=== PATIENT | male | born 1970 | race Caucasian/White ===

== ENCOUNTER 2023-04-09 22:33 | Inpatient (IN) | payer OTHER, SELFPAY ==
[2023-04-09 22:41] VITALS: BP 114/77; PULSE 97; RESP 18; TEMP 36.9; O2SAT 99; BMI 30.3
--- NOTE | 2023-04-09 22:56 | DI.RAD.S_ITS ---
PROCEDURE: XR ABDOMEN 1V INDICATIONS: lower abd pain TECHNIQUE: One view of the abdomen acquired. COMPARISON: None. FINDINGS: Surgical changes and devices: None. Bowel: No pneumoperitoneum. Nonspecific bowel gas pattern with a few nondilated air-filled loops of small bowel in the central abdomen. Soft tissues: No suspicious abdominal calcifications. Visualized solid organ contours appear normal in size. Bones: No suspicious bony lesions. IMPRESSION: No pneumoperitoneum. Nonspecific bowel gas pattern. Consider CT of the abdomen and pelvis for further evaluation if symptoms persist. Approved by: Yony Salvador M.D. on 04/09/2023 at 23:52
[2023-04-09 23:10] LABS: Add Manual Diff / Slide Review NO; Basophils Absolute Auto 0 /uL (0-100); Basophils Percent Auto 0.2 % (0-2); Eosinophils Absolute Auto 100 /uL (0-450); Eosinophils Percent Auto 0.4 % (2-4); Hematocrit 43.6 % (41-53); Hemoglobin 15.1 g/dL (13.5-17.5); Lymphocytes Absolute Auto 1700 /uL (1100-4500); Lymphocytes Percent Auto 10.7 % (25-40); Mean Corpuscular HGB Conc 34.7 % (30-36); Mean Corpuscular Hemoglobin 32.7 PG (26-34); Mean Corpuscular Volume 94.2 fL (80-100); Monocytes Absolute Auto 600 /uL (0-900); Monocytes Percent Auto 4.1 % (3-14); Neutrophils Absolute Auto 13000 /uL (1500-7000); Neutrophils Percent Auto 84.6 % (50-75); Platelet Count 235 X10^3/uL (150-400); Red Blood Cell Count 4.63 X10^6/uL (4.5-5.9); Red Cell Distribution Width 12.8 % (11.6-14.8); White Blood Cell Count 15.4 X10^3/uL (4.5-11.0)
[2023-04-09 23:17] LABS: Alanine Aminotransferase 28 IU/L (<50); Albumin 4.4 g/dL (3.5-5.0); Albumin Globulin Ratio 1.5 (1.0-2.8); Alkaline Phosphatase 42 U/L (38-126); Aspartate Aminotransferase 21 IU/L (17-59); BUN Creatinine Ratio 15.2 (6-22); Bilirubin Total 1.1 mg/dL (0.2-1.3); Blood Urea Nitrogen 15 mg/dL (9-20); Calcium 8.8 mg/dL (8.4-10.2); Carbon Dioxide 27 mmol/L (22-32); Chloride 98 mmol/L (98-107); Estimated Glomerular Filt Rate > 60 mL/min (>60); Glucose 143 mg/dL (70-100); HEMOLYSIS < 15 (0-50); Potassium 3.6 mmol/L (3.4-5.1); Sodium 134 mmol/L (137-145); Total Protein 7.4 g/dL (6.3-8.2)
[2023-04-09 23:24] LABS: Lipase 43 U/L (23-300)
--- NOTE | 2023-04-09 23:50 | DI.CT.S_ITS ---
PROCEDURE: CT ABDOMEN PELVIS W CON INDICATIONS: bilateral lower abd pain TECHNIQUE: After the administration of intravenous contrast, axial sections acquired from the lung bases to the pubic symphysis. Coronal and sagittal reformats were performed. For radiation dose reduction, the following was used: automated exposure control, adjustment of mA and/or kV according to patient size. COMPARISON: None. FINDINGS: Image quality: Excellent. Lung bases: Mild atelectasis in the lung bases. Heart: No significant findings. ABDOMEN: Liver: Unremarkable. Gallbladder: Unremarkable. Biliary ducts: Unremarkable. Pancreas: Unremarkable. Spleen: Unremarkable. Adrenal Glands: Unremarkable. Kidneys and Ureters: Duplex appearance of the left kidney is incidentally noted. No hydronephrosis. Bowel and peritoneum: Multiple diverticula are seen in the colon. Bowel wall thickening and inflammatory fat stranding are seen adjacent to a diverticulum at the sigmoid colon. An adjacent small collection of fluid and gas is seen measuring approximately 2.1 x 1.4 cm (66/2). Small tracks are seen extending to the adjacent small bowel loops with adjacent reactive bowel wall thickening. No signs of bowel obstruction. Liquid stool is noted in the ascending and transverse colon. Normal appendix. Mild nonspecific edema is noted at the root of the small bowel mesentery. Ventral Wall: Fat containing periumbilical hernia. Abdominal Nodes: No retroperitoneal or mesenteric adenopathy by size criteria. Vessels: Aorta and inferior vena cava are normal in size. PELVIS: Pelvic Organs: Unremarkable. Bladder: Unremarkable. Pelvic Nodes: No enlarged lymph nodes. Miscellaneous: No hernias are seen. Bones: Unremarkable. IMPRESSION: Acute ruptured sigmoid diverticulitis. Small foci of fluid and gas are seen in the pericolonic fat with reactive bowel wall thickening in the adjacent small bowel. No well-formed drainable abscess is seen at this time. A developing enterocolonic fistula tract is not excluded. Findings were discussed with the referring physician, Dr. Avila, by telephone on 04/10/2023 at 1:06 AM. Approved by: Yony Salvador M.D. on 04/10/2023 at 1:07
--- NOTE | 2023-04-09 23:51 | ED.GENADULT ---
HPI - General Adult General Chief complaint: Abdominal Pain Stated complaint: ABD pain Time Seen by Provider: 04/09/23 22:55 Source: patient and family Mode of arrival: Ambulatory History of Present Illness HPI narrative: 52-year-old male. Is otherwise healthy. Has never had a colonoscopy who is here for evaluation of lower abdominal discomfort. States he has having some nausea but no vomiting. Did have some diarrhea earlier today. No urinary symptoms. No fevers. No prior abdominal surgeries. To take some Advil prior to arrival without any improvement. Related Data Allergies Allergy/AdvReac Type Severity Reaction Status Date / Time No Known Drug Allergies Allergy Verified 04/10/23 01:37 Review of Systems Constitutional Constitutional: Reports system reviewed and no additional complaints, except as documented Gastrointestinal Gastrointestinal: Reports system reviewed and no additional complaints, except as documented Genitourinary Genitourinary: Reports system reviewed and no additional complaints, except as documented Integumentary/Breasts Skin/Breast: Reports system reviewed and no additional complaints, except as documented Hematologic/Lymphatic On Anticoagulants: No Patient History Social History Smoking Status: Never smoker Smoking Status: Never smoker alcohol intake frequency: a few times a week Substance Use Type: does not use Exam Initial Vital Signs Initial Vital Signs: Vital Signs Temperature 98.4 F 04/09/23 22:41 Pulse Rate 97 H 04/09/23 22:41 Respiratory Rate 18 04/09/23 22:41 Blood Pressure 114/77 04/09/23 22:41 Pulse Oximetry 99 04/09/23 22:41 Oxygen Delivery Method Room Air 04/09/23 22:41 Const General: cooperative, comfortable and No ill appearing [facility] Head: normal to inspection and normocephalic Resp Effort & Inspection: normal respiratory effort Auscultation: clear to auscultation bilaterally Cardio Rate: regular rate Rhythm: regular rhythm GI Inspection: normal to inspection and non-distended Palpation: soft, No firm and tender (Lower abdomen) Skin General: no rashes or lesions noted Neuro General: patient alert, patient awake and moves all extremities Extrem General: normal to inspection and capillary refill normal Course Orders Ordered: ED Orders 04/09/23 22:56 XR abdomen 1V Stat 04/09/23 22:57 Complete Blood Count AUTO DIFF Stat Comprehensive Metabolic Panel Stat Lipase Stat 04/09/23 23:50 CT abdomen pelvis w con Stat 04/10/23 01:17 Blood Culture Stat Lactate (Lactic Acid) Stat 04/10/23 01:19 Urinalysis and Microscopic Stat Urine Culture Stat 04/10/23 01:21 Consult to General Surgery Urgent Sodium Chloride (Normal Saline 0.9%) 1,000 mls @ 125 mls/hr IV CONT IFRAH Last Admin: 04/10/23 01:27 Dose: 125 mls/hr Documented By: RODERICK Morphine Sulfate (Morphine 2 Mg/Ml Inj) 2 mg IV Q4HR PRN PRN Reason: Pain, Moderate (4-6) Ondansetron HCl (Ondansetron 4 Mg/2 Ml Inj) 4 mg IV Q4HR PRN PRN Reason: Nausea And Vomiting Discontinued Medications Piperacillin Sod/Tazobactam (Sod 4.5 gm/ Sodium Chloride) 100 mls @ 200 mls/hr IV NOW ONE Stop: 04/10/23 01:18 Last Admin: 04/10/23 01:27 Dose: 200 mls/hr Documented By: RODERICK Vital Signs Vital signs: Vital Signs - 8 hr 04/09/23 22:41 Temperature 98.4 F Pulse Rate 97 H Respiratory Rate 18 Blood Pressure 114/77 Pulse Oximetry 99 Oxygen Delivery Method Room Air Medical Decision Making Lab Data Lab results reviewed: Yes I reviewed the patient's lab results. 04/09/23 22:57 04/09/23 22:57 Labs: Lab Results 04/09/23 04/09/23 04/09/23 Range/Units 22:57 22:57 22:57 WBC 15.4 H (4.5-11.0) X10^3/uL RBC 4.63 (4.5-5.9) X10^6/uL Hgb 15.1 (13.5-17.5) g/dL Hct 43.6 (41-53) % MCV 94.2 (80-100) fL MCH 32.7 (26-34) PG MCHC 34.7 (30-36) % RDW 12.8 (11.6-14.8) % Plt Count 235 (150-400) X10^3/uL Neut % (Auto) 84.6 H (50-75) % Lymph % (Auto) 10.7 L (25-40) % [place] % (Auto) 4.1 (3-14) % Eos % (Auto) 0.4 L (2-4) % Baso % (Auto) 0.2 (0-2) % Neut # (Auto) 61516 H (5972-9403) /uL Lymph # (Auto) 1700 (1971-2987) /uL [place] # (Auto) 600 (0-900) /uL Eos # (Auto) 100 (0-450) /uL Baso # (Auto) 0 (0-100) /uL Sodium 134 L (137-145) mmol/L Potassium 3.6 (3.4-5.1) mmol/L Chloride 98 (98-107) mmol/L Carbon Dioxide 27 (22-32) mmol/L BUN 15 (9-20) mg/dL Creatinine 0.99 (0.66-1.25) mg/dL Estimated GFR > 60 (>60) mL/min BUN/Creatinine Ratio 15.2 (6-22) Glucose 143 H (70-100) mg/dL Lactate (0.7-2.1) mmol/L Calcium 8.8 (8.4-10.2) mg/dL Total Bilirubin 1.1 (0.2-1.3) mg/dL AST 21 (17-59) IU/L ALT 28 (<50) IU/L Alkaline Phosphatase 42 (38-126) U/L Total Protein 7.4 (6.3-8.2) g/dL Albumin 4.4 (3.5-5.0) g/dL Globulin 3.0 (1.7-4.1) g/dL Albumin/Globulin Ratio 1.5 (1.0-2.8) Lipase 43 (23-300) U/L 04/09/23 Range/Units 22:57 WBC (4.5-11.0) X10^3/uL RBC (4.5-5.9) X10^6/uL Hgb (13.5-17.5) g/dL Hct (41-53) % MCV (80-100) fL MCH (26-34) PG MCHC (30-36) % RDW (11.6-14.8) % Plt Count (150-400) X10^3/uL Neut % (Auto) (50-75) % Lymph % (Auto) (25-40) % [place] % (Auto) (3-14) % Eos % (Auto) (2-4) % Baso % (Auto) (0-2) % Neut # (Auto) (0831-1007) /uL Lymph # (Auto) (5870-6449) /uL [place] # (Auto) (0-900) /uL Eos # (Auto) (0-450) /uL Baso # (Auto) (0-100) /uL Sodium (137-145) mmol/L Potassium (3.4-5.1) mmol/L Chloride (98-107) mmol/L Carbon Dioxide (22-32) mmol/L BUN (9-20) mg/dL Creatinine (0.66-1.25) mg/dL Estimated GFR (>60) mL/min BUN/Creatinine Ratio (6-22) Glucose (70-100) mg/dL Lactate 1.1 (0.7-2.1) mmol/L Calcium (8.4-10.2) mg/dL Total Bilirubin (0.2-1.3) mg/dL AST (17-59) IU/L ALT (<50) IU/L Alkaline Phosphatase (38-126) U/L Total Protein (6.3-8.2) g/dL Albumin (3.5-5.0) g/dL Globulin (1.7-4.1) g/dL Albumin/Globulin Ratio (1.0-2.8) Lipase (23-300) U/L Imaging Data Abdominal x-ray: Radiologist's Impression: PROCEDURE:? XR ABDOMEN 1V ? INDICATIONS:? lower abd pain ? TECHNIQUE:? One view of the abdomen acquired.? ? COMPARISON:? None. ? FINDINGS:? ? Surgical changes and devices:? None.? ? Bowel:? No pneumoperitoneum.? Nonspecific bowel gas pattern with a few nondilated air-filled loops of small bowel in the central abdomen. ? Soft tissues:? No suspicious abdominal calcifications.? Visualized solid organ contours appear normal in size.? ? Bones:? No suspicious bony lesions.? ? IMPRESSION:? No pneumoperitoneum.? Nonspecific bowel gas pattern.? Consider CT of the abdomen and pelvis for further evaluation if symptoms persist CT scan - abdomen/pelvis: Radiologist's Impression: PROCEDURE:? CT ABDOMEN PELVIS W CON ? INDICATIONS:? bilateral lower abd pain ? TECHNIQUE:? After the administration of intravenous contrast, axial sections acquired from the lung bases to the pubic symphysis.? Coronal and sagittal reformats were performed.? For radiation dose reduction, the following was used:? automated exposure control, adjustment of mA and/or kV according to patient size.? ? COMPARISON:? None. ? FINDINGS:? Image quality:? Excellent.? ? Lung bases:? Mild atelectasis in the lung bases. Heart:? No significant findings. ? ABDOMEN: Liver:? Unremarkable.? ? Gallbladder:? Unremarkable. Biliary ducts:? Unremarkable.? ? Pancreas:? Unremarkable.? ? Spleen:? Unremarkable.? ? Adrenal Glands:? Unremarkable.? ? Kidneys and Ureters:? Duplex appearance of the left kidney is incidentally noted.? No hydronephrosis. ? Bowel and peritoneum:? Multiple diverticula are seen in the colon.? Bowel wall thickening and inflammatory fat stranding are seen adjacent to a diverticulum at the sigmoid colon. An adjacent small collection of fluid and gas is seen measuring approximately 2.1 x 1.4 cm (66/2).? Small tracks are seen extending to the adjacent small bowel loops with adjacent reactive bowel wall thickening.? No signs of bowel obstruction.? Liquid stool is noted in the ascending and transverse colon.? Normal appendix.? Mild nonspecific edema is noted at the root of the small bowel mesentery. ? Ventral Wall: ? Fat containing periumbilical hernia.? Abdominal Nodes:? No retroperitoneal or mesenteric adenopathy by size criteria.? Vessels:? Aorta and inferior vena cava are normal in size.? ? PELVIS: Pelvic Organs:? Unremarkable.? ? Bladder:? Unremarkable.? ? Pelvic Nodes: No enlarged lymph nodes.? Miscellaneous: No hernias are seen. ? ? ? Bones:? Unremarkable.? IMPRESSION:? Acute ruptured sigmoid diverticulitis.? Small foci of fluid and gas are seen in the pericolonic fat with reactive bowel wall thickening in the adjacent small bowel.? No well-formed drainable abscess is seen at this time.? A developing enterocolonic fistula tract is not excluded.? ? MDM Narrative Medical decision making narrative: Patient does have a leukocytosis. Has minimal lower abdominal tenderness. CT scan shows diverticulitis with perforation. Patient is not vomiting. Deny the need for nausea or pain medication here in the ER. Afebrile. I did discuss the case with Dr. han on-call for General surgery who will admit for further evaluation and treatment. Discussed the need admission with the patient. He expressed understanding agreement as well. Discharge Plan Departure Patient Disposition: Home Clinical Impression: Diverticulitis of colon with perforation
[2023-04-10] MEDS: PIPERACILLIN/TAZO 4.5 GM in SODIUM CHLORIDE 0.9% 100 ML IV (01:27)
[2023-04-10] MEDS: SODIUM CHLORIDE 0.9% 1,000 ML 125 ML IV (01:27)
[2023-04-10 01:28] LABS: Lactate (Lactic Acid) 1.1 mmol/L (0.7-2.1)
[2023-04-10 02:00] VITALS: BP 120/77; PULSE 86; RESP 18; TEMP 36.9; O2SAT 95
[2023-04-10 02:18] VITALS: BMI 30.3
[2023-04-10 02:34] LABS: Appearance Urine UA CLEAR; Bilirubin Urine UA NEGATIVE (NEGATIVE); Color Urine UA YELLOW; Glucose Urine UA NEGATIVE (Negative); Ketones Urine UA 1+ (NEGATIVE); Leukocyte Esterase Urine UA NEGATIVE (NEGATIVE); Nitrite Urine UA NEGATIVE (Negative); Occult Blood Urine UA NEGATIVE (Negative); Protein Urine UA TRACE (Negative); Specific Gravity Urine UA 1.015 (1.000-1.035); pH Urine UA 5.5 (4.5-8.0)
[2023-04-10 02:42] LABS: Bacteria Urine None Seen; RBC Urine None Seen (0-5/HPF); WBC Urine None Seen (0-5/HPF)
[2023-04-10 02:43] LABS: Mucus Urine 1+ (Negative)
[2023-04-10 11:00] VITALS: BP 125/76; PULSE 88; RESP 17; TEMP 36.7; O2SAT 97
[2023-04-10 11:40] VITALS: PULSE 72
--- NOTE | 2023-04-10 12:07 | PM.HP.1 ---
History of Present Illness History of Present Illness Date Patient Seen: 04/10/23 Time Patient Seen: 12:07 Chief complaint: ABD pain Narrative: Mr. 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 He has never had pain like this before and it started a few days ago but was getting much much worse until his stated that he needed to go to the emergency room to have it checked out. He has not had a colonoscopy in the past. He denies fever chills nausea vomiting diarrhea or constipation. He thinks that overall his pain is a little bit better than it was last night. It is still pretty significant. He has been ambulating in the room and urinating normally. He subjectively reports a normal amount of urine and color. He takes no medication and has not had any surgeries. [facility] Social History household members: spouse Smoking Status: Never smoker alcohol intake: current Meds Home Medications and Allergies Home Medications Medication Instructions Recorded Confirmed Type No Known Home Medications 04/10/23 04/10/23 History Allergies Allergy/AdvReac Type Severity Reaction Status Date / Time No Known Drug Allergies Allergy Verified 04/10/23 01:37 Exam Vital Signs (past 8 hours): - 04/10/23 08:26 Temperature 98.1 F Pulse Rate 88 Respiratory Rate 17 Blood Pressure 125/76 Pulse Oximetry 97 Oxygen Delivery Method Room Air Const General: cooperative, healthy appearing and comfortable Nutritional Appearance: well nourished Orientation: alert, awake and oriented x3 Other: supine in bed. HENMT Head: normal to inspection Mouth: moist mucous membranes Eyes General: appearance normal, both eyes and all related structures Resp Effort & Inspection: normal respiratory effort and able to speak in complete sentences Cardio Pulses: radial pulses present GI Palpation: soft and tender (markedly tender mainly suprapubic/midline below umbilicus. local peritoneal) Extrem General: normal to inspection Objective Labs 04/09/23 22:57 04/09/23 22:57 Labs: Laboratory Results - last 24 hr 04/09/23 04/09/23 04/09/23 22:57 22:57 22:57 WBC 15.4 H RBC 4.63 Hgb 15.1 Hct 43.6 MCV 94.2 MCH 32.7 MCHC 34.7 RDW 12.8 Plt Count 235 Neut % (Auto) 84.6 H Lymph % (Auto) 10.7 L Page % (Auto) 4.1 Eos % (Auto) 0.4 L Baso % (Auto) 0.2 Neut # (Auto) 50013 H Lymph # (Auto) 1700 Page # (Auto) 600 Eos # (Auto) 100 Baso # (Auto) 0 Sodium 134 L Potassium 3.6 Chloride 98 Carbon Dioxide 27 BUN 15 Creatinine 0.99 Estimated GFR > 60 BUN/Creatinine Ratio 15.2 Glucose 143 H Lactate Calcium 8.8 Total Bilirubin 1.1 AST 21 ALT 28 Alkaline Phosphatase 42 Total Protein 7.4 Albumin 4.4 Globulin 3.0 Albumin/Globulin Ratio 1.5 Lipase 43 Urine Color Urine Appearance Urine pH Ur Specific [place] Urine Protein Urine Glucose (UA) Urine Ketones Urine Occult Blood Urine Nitrate Urine Bilirubin Urine Urobilinogen Ur Leukocyte Esterase Urine RBC Urine WBC Urine Bacteria Urine Mucus Micro UA Comment 04/09/23 04/10/23 22:57 02:00 WBC RBC Hgb Hct MCV MCH MCHC RDW Plt Count Neut % (Auto) Lymph % (Auto) Page % (Auto) Eos % (Auto) Baso % (Auto) Neut # (Auto) Lymph # (Auto) Page # (Auto) Eos # (Auto) Baso # (Auto) Sodium Potassium Chloride Carbon Dioxide BUN Creatinine Estimated GFR BUN/Creatinine Ratio Glucose Lactate 1.1 Calcium Total Bilirubin AST ALT Alkaline Phosphatase Total Protein Albumin Globulin Albumin/Globulin Ratio Lipase Urine Color Yellow Urine Appearance Clear Urine pH 5.5 Ur Specific [place] 1.015 Urine Protein Trace H Urine Glucose (UA) Negative Urine Ketones 1+ H Urine Occult Blood Negative Urine Nitrate Negative Urine Bilirubin Negative Urine Urobilinogen 1.0 Ur Leukocyte Esterase Negative Urine RBC None seen Urine WBC None seen Urine Bacteria None seen Urine Mucus 1+ H Micro UA Comment * Assessment & Plan Assessment and plan (1) Diverticulitis of colon with perforation: Status: Acute Plan - IV abtx until pain improves - tolerating some food, will continue general diet - UOP subjectively normal, will stop continuous IVFs. drinking normally and denies nausea. - DVT ppx : Lovenox - encourage to ambulate - needs 10-14 days total abtx and 6-8 week colonoscopy. will f/u in office - anticipate 1-2 days in house. Discharge when pain improves. Will recheck WBC if not improving. Quality VTE Deep Vein Thrombosis/Pulmonary Embolism Present on Admission: No
--- NOTE | 2023-04-10 12:48 | CM.DANOTE ---
Initial Discharge Assessment Note: Case reviewed, met with patient. Introduced self and role. Payer: [employer] and self pay PCP: Dr Ziyad Hayes 52 year old otherwise healthy male was admitted with nausea, diarrhea, abdominal pain. On imaging found to have an acute ruptured sigmoid diverticulitis without abscess. Dr Man in to see patient and will continue IV antibiotics. Patient is on an advancing diet. He will be managed on an outpatient basis on discharge. Pleasant, A/O patient who is employed and lives in [place] with his Nancy. He is normally independent in ADLs and drives. Plan: When medically cleared, discharge home to care of spouse. FNEG Discharge Planning/Care Management CM Discharge Assessment Start: 04/10/23 12:47 Freq: Status: Active Protocol: Document 04/10/23 12:47 (Rec: 04/10/23 12:48 [id number]) Discharge Planning Assessment Assigned Television Repairman Gabriela Holm RN/DCP Advance Directives? No History Provided By Patient Has Patient been admitted in last 30 No days? Prior Living Arrangements House Household Members spouse Type of transporation used prior to Drives own vehicle admit Independent with ADL's Yes Is patient alert and oriented? Yes Caregiver for Another No Barriers to Discharge No Discharge Plan Home Review Status In Process Next Review Type Continued Stay Review
[2023-04-10] MEDS: PIPERACILLIN/TAZO 3.375 GM in SODIUM CHLORIDE 0.9% 100 ML IV (12:50)
[2023-04-10] MEDS: ACETAMINOPHEN 325 MG TABLET 975 MG PO ×2 (13:04→19:50)
[2023-04-10] MEDS: ENOXAPARIN 40 MG/0.4 ML SYRINGE SUBCUT (13:05)
--- NOTE | 2023-04-10 17:50 | PC.NURSE ---
Pt doing well, c/o of only mnimal discomfort.' Receiving IVPB ABO Ambulating in hallway w/o incidence. Tylenol only for mild discomfort w/ good relief. Call light w/in reach, pt calls appropriately for needed. Continue w/plan of care.
[2023-04-10 20:00] VITALS: BP 124/74; PULSE 87; RESP 17; TEMP 37.2; O2SAT 99
[2023-04-10 22:00] VITALS: BP 124/77; PULSE 96; RESP 18; TEMP 36.7; O2SAT 96
[2023-04-11] MEDS: PIPERACILLIN/TAZO 3.375 GM in SODIUM CHLORIDE 0.9% 100 ML IV ×2 (00:31→07:57)
[2023-04-11] MEDS: ACETAMINOPHEN 325 MG TABLET 975 MG PO (05:50)
[2023-04-11 06:00] VITALS: BP 119/71; PULSE 71; RESP 16; TEMP 36.5; O2SAT 99
[2023-04-11 08:20] VITALS: BP 120/66; PULSE 78; RESP 16; TEMP 36.8; O2SAT 98
[2023-04-11] MEDS: ENOXAPARIN 40 MG/0.4 ML SYRINGE SUBCUT (09:50)
[2023-04-11] MEDS: AMOXICILLIN/CLAV 875/125 MG 1 TAB PO (12:49)
--- NOTE | 2023-04-11 13:14 | P.DS_ITS ---
History of Present Illness History of Present Illness Date Patient Seen: 04/11/23 Time Patient Seen: 13:14 Chief complaint: ABD pain Narrative: Mr. 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 He has never had pain like this before and it started a few days ago but was getting much much worse until his stated that he needed to go to the emergency room to have it checked out. He has not had a colonoscopy in the past. He denies fever chills nausea vomiting diarrhea or constipation. He thinks that overall his pain is a little bit better than it was last night. It is still pretty significant. He has been ambulating in the room and urinating normally. He subjectively reports a normal amount of urine and color. He takes no medication and has not had any surgeries. Discharge Providers Provider Date of admission: 04/10/23 01:37 Discharge Date: 04/11/23 Primary care physician: Ziyad Hayes MD Consults: 04/10/23 01:21 Consult to General Surgery Urgent Comment: Consulting Provider: Filomena Man Reason for consultation: admission Has provider been notified: Yes Discharge provider: Filomena Man MD Summary Hospital Course Discharge Diagnosis: Perforated diverticulitis Hospital Course: Mr. Covington was admitted to the hospital and given IV antibiotics. He initially had a leukocytosis. On hospital day 1 he still had some abdominal pain but was urinating normally. On hospital day 2 his pain was greatly improved. He still said that he has a feeling of fullness around his bladder. Because of this I gave him prescription for a short course of tamsulosin to prevent any urinary retention that may occur due to the inflammatory process that is occurring near his bladder. He has tolerated a regular diet and his pain is controlled on oral medication. He is going to be discharged with 14 total day course of antibiotics for diverticulitis. I also recommended a fiber supplement and stool softeners. He will be given pain medicine that he can take as needed. I have recommended that he follow-up in my office around 2 weeks and that he will need a colonoscopy in the 6-8 week timeframe. Status at Discharge Cognitive/behavioral status at discharge: oriented and at baseline, oriented Functional status at discharge: independent ambulation Overall status at discharge: patient is progressing back to baseline Time Spent with Patient Time spent: Less than 30 minutes Exam Vital Signs (past 8 hours): - 04/11/23 06:00 04/11/23 08:20 Temperature 97.7 F 98.2 F Pulse Rate 71 78 Respiratory Rate 16 16 Blood Pressure 119/71 120/66 Pulse Oximetry 99 98 Oxygen Flow Rate 0 Oxygen Delivery Method Room Air Oxygen Flow Rate 0 Const General: cooperative, healthy appearing and comfortable Nutritional Appearance: well nourished HENMO Head: normal to inspection Resp Effort & Inspection: normal respiratory effort and able to speak in complete sentences GI Palpation: soft and tender (Very minimal tenderness in the suprapubic area. ) Other: Some palpable masslike structure in the area correlating with the finding on the CT scan. The tenderness is markedly improved from admission. Extrem General: normal to inspection Objective Labs 04/09/23 22:57 04/09/23 22:57 PFSH Social History household members: spouse Smoking Status: Never smoker alcohol intake: current Discharge Assessment & Plan Assessment and Plan Assessment: Perforated diverticulitis Plan of Treatment: Please see summary above. Follow-up with general surgeons in 1-2 weeks and screening colonoscopy in 6-8 weeks. Discharge Plan Discharge Plan Patient Disposition: Home Provider Discharge Comment: You will need a colonoscopy in 6-8 weeks if you recover well (maybe a few weeks longer if there are complications, unlikely). I do recommend a powdered fiber supplement twice daily with a large glass of water. Signs of urinary retention are pain with urination, incontinence, feeling of fullness in your bladder even after your urinate, suprapubic or back pain. Please call if you experience any of these symptoms. Discharge orders & Medications Prescriptions: New amoxicillin-pot clavulanate 875-125 mg Tablet 1 tab PO BID 12 Days Qty: 24 0RF oxycodone-acetaminophen [Percocet] 5-325 mg tablet 1 tab PO Q4-6H PRN (Reason: pain) Qty: 14 0RF ibuprofen 800 mg tablet 800 mg PO Q6H Qty: 30 1RF Rx Instructions: Take every 6 hours for pain to prevent pain from building up. If you need something stronger you could take the Percocet as needed in between these doses. docusate sodium [Colace] 100 mg capsule 100 mg PO BID Qty: 30 1RF Rx Instructions: Take while taking Percocet for pain to prevent constipation. If you become constipated you may take some MiraLax or any other ofjc-rcs-ncwtogw product that has worked for you. If it is 3 or more days with no bowel movement please call the office. Fiber (psyllium husk-sugar) 3.4 gram/7 gram powder 1 tbsp PO BID Qty: 822 0RF Rx Instructions: Take with a large glass of water tamsulosin 0.4 mg capsule 0.4 mg PO BEDTIME Qty: 30 1RF Rx Instructions: This medicine is to try to prevent urinary retention and help decrease the prostate component of it. Once you are feeling better with less pressure in your pelvis you can stop taking this medicine. If you experience symptoms of urinary retention please call the office right away. Follow up/Referrals: Filomena Man MD [Physician] - (Call office to schedule an appointment or telephone call at 10-14 days from discharge. Contact us sooner with any concerns or questions. We need to know if you have fevers, increasing pain, constipation lasting more than 3-4 day, nausea or if there is anything that doesn't seem right or if you have any questions. ) Ziyad Hayes MD [Primary Care Provider] - Diet/Activity/Treatments Diet: Diet as Tolerated and Regular Diet comment: Fiber supplement. Activity: Take it easy for 2 weeks. You can resume to drive when you no longer need to take any narcotic medication for pain. It is normal to feel more tired than usual. If you improve faster than expected and wished to return to work prior to 2 weeks the office can fill out any paperwork that is required for this. Skin/Wound/Dressing Care Report to your healthcare provider any signs of infection, such as:: chills, fever, night sweats and increased pain Visit Report/Discharge Packet Instructions: DI for Urinary Retention in Men Stand Alone Forms: Patient Portal/API Discharge Data Primary Care Provider: Ziyad Hayes Quality VTE Deep Vein Thrombosis/Pulmonary Embolism Present on Admission: No
== END 2023-04-11 13:53 | disposition home or self-care (01) | DRG 392 ==
LOC: ED 04-10 01:20 → AC 04-10 01:38
PROVIDERS: Admitting Provider Surgery; Emergency Provider Emergency Medicine; PCP Family Medicine; Referring Provider Emergency Medicine; Visit Provider Surgery
DX: K57.00 Diverticulitis of small intestine with perforation and abscess without bleeding (principal); Z20.822 Contact with and (suspected) exposure to COVID-19
CPT/HCPCS: 36415; 74018; 74177; 80053; 81001; 83605; 83690; 85025; 87040; 87086; 99221; 99238; 99284; J1650; J2543; Q9967